=== PATIENT | female | born 1980 | race African-American/Black ===

== ENCOUNTER 2022-04-02 21:56 | Inpatient (IN) | payer MEDICAID ==
[~2022-04-02] VITALS: Ht 172.7 cm; Wt 78.3 kg
--- NOTE | 2022-04-02 22:05 | NUR ---
MD Bocanegra at bedside examining pt.
[2022-04-02 22:09] VITALS: BP_SYST 144
--- NOTE | 2022-04-02 22:10 | NUR ---
41 y/o F, BIB ALS from home due to ALOC. Boyfriend reports he noted her drowsy and slouching over before being assisted to floor, Bf then called 911. On scene BS was elevated and pt remained altered and only arousable to pain. GCS of 2, 4, 4 upon ED arrival. Pt breathing on RA. Unable to obtain history from pt due to condition. Accu check obtaibed with reading of "high" Pt connected to CM at this time. MD Bocanegra at bedside.
[2022-04-02] MEDS ORDERED: NACL 0.9% 2,000 ML IV ONE (22:30)
[2022-04-02] MEDS ORDERED: cefTRIAXone 1 GM IVPB PREMIX 50 ML IV ONE (22:45)
[2022-04-02] MEDS ORDERED: NS 500 ML IV ONE (22:45)
[2022-04-02 23:16] LABS: HEMOGLOBIN 12.8 g/dL (12.0-16.0); MONOCYTES # (AUTO) 0.6 K/uL (0.0-1.0); MONOCYTES % (AUTO) 4.4 % (1.7-9.3); WHITE BLOOD COUNT (AUTO) 12.6 K/uL (4.8-10.8)
[2022-04-02 23:20] LABS: BASOPHILS # (AUTO) 0.1 K/uL (0.0-0.2); BASOPHILS % (AUTO) 0.6 % (0.0-2.0); EOSINOPHILS % (AUTO) 0.1 % (0.0-4.0); HEMATOCRIT 40.1 % (36-48); LYMPHOCYTES # (AUTO) 0.9 K/uL (1.0-5.5); LYMPHOCYTES % (AUTO) 7.5 % (20.5-51.5); MEAN CORPUSCULAR HEMOGLOBIN 29 pg (27-31); MEAN CORPUSCULAR HGB CONC 32 % (32-36); MEAN CORPUSCULAR VOLUME 91 fL (79.0-98.0); NEUTROPHILS % (AUTO) 87.4 % (40.0-70.0); PLATELET COUNT (AUTO) 335 K/uL (130-430); RED CELL DISTRIBUTION WIDTH 15.9 % (9.0-15.0)
[2022-04-03] VITALS (17 sets, daily range): BP systolic 129–153
--- NOTE | 2022-04-03 | NUR ---
# 18 gauge angiocath placed to L FOREARM. Use of asceptic technique. Opsite placed over site. Blood return noted. Blood for lab drawn from site. Flushed with 10 cc of normal saline. No evidence of infiltration noted. Patient tolerated well.
[2022-04-03 00:59] LABS: ANION GAP 10 (5-15); CALCIUM 10.4 mg/dL (8.4-11.0); CHLORIDE 82 mmol/L (98-107); CREATININE 1.87 mg/dL (0.55-1.30); GFR AFRICAN AMERICAN 38 mL/min (>90); UREA NITROGEN, BLOOD 32 mg/dL (8-21)
--- NOTE | 2022-04-03 00:59 | NUR ---
Critical Lab values reported to MD Bocanegra with new orders.
[2022-04-03 01:00] LABS: ALANINE AMINOTRANSFERASE 22 U/L (12-78); ALBUMIN 4.2 g/dL (3.4-4.8); ASPARTATE AMINOTRANSFERASE 17 U/L (10-37); TOTAL BILIRUBIN 0.5 mg/dL (0.0-1.0)
[2022-04-03] MEDS ORDERED: INSULIN REGULAR, HUMAN 10 UNITS/0.1 ML, 3 ML VIAL IVP ONE (01:00)
[2022-04-03 01:01] LABS: LIPASE 268 U/L (73-393)
[2022-04-03 01:37] LABS: BILIRUBIN,URINE NEGATIVE (NEGATIVE); BLOOD, URINE 3+ (NEGATIVE); CLARITY/URINE CLEAR (CLEAR); GLUCOSE,URINE 3+ (NEGATIVE); KETONES,URINE TRACE (NEGATIVE); LEUKOCYTE ESTERASE ,URINE 1+ (NEGATIVE); NITRITE, URINE NEGATIVE (NEGATIVE); PROTEIN URINE TRACE (NEGATIVE); UROBILINOGEN,URINE 0.2 (0.2-1.0)
[2022-04-03 01:42] LABS: COLOR,URINE YELLOW (YELLOW)
[2022-04-03 01:53] LABS: BARBITURATE, URINE NEGATIVE (NEG <=200); BENZODIAZEPINE, URINE NEGATIVE (NEG <=150); CANNABINOID, URINE NEGATIVE (NEG <=50); COCAINE, URINE POSITIVE (NEG <=150); METHAMPHETAMINES SCREEN,URINE NEGATIVE (NEG <=500); OPIATE, URINE NEGATIVE (NEG <=100); PHENCYCLIDINE SCREEN,URINE NEGATIVE (NEG <=25); UR TRICYCLIC ANTIDEPRESSANTS NEGATIVE (NEG <=300); URINE AMPHETAMINE NEGATIVE (NEG <=500); URINE METHADONE NEGATIVE (NEG <=200); URINE OXYCODONE SCREEN NEGATIVE (NEG <=100); URINE PROPOXYPHENE SCREEN NEGATIVE (NEG <=300)
[2022-04-03] MEDS ORDERED: CALCIUM GLUCONATE 1 GM/10 ML VIAL IVP ONE (02:00)
[2022-04-03] MEDS ORDERED: levETIRAcetam 1,000 MG in NS 90 ML IV ONE (02:15)
[2022-04-03 02:28] LABS: BACTERIA,URINE FEW /HPF (None Seen); MUCUS,URINE 2+ /LPF (None Seen); RBC,URINE 20-50 /HPF (0-3); WBC,URINE 80-100 /HPF (0-3)
[2022-04-03] MEDS ORDERED: INSULIN REGULAR, HUMAN 100 UNITS in NS 99 ML IV PRN ×2 (02:30)
[2022-04-03] MEDS ORDERED: DEXTROSE 50% JECT 50 ML DISP.SYRIN IVP PRN (02:30)
[2022-04-03 02:41] LABS: GLUCOSE 1378 mg/dL (70-99)
[2022-04-03 02:51] LABS: ALCOHOL, BLOOD < 3 mg/dL (<10)
[2022-04-03 02:53] LABS: ACETONE, SERUM SMALL (NEGATIVE)
--- NOTE | 2022-04-03 03:00 | NUR ---
Pt started on insulin drip as ordered for elevated BS. Titration to follow. Hourly accuchecks to be rendered.
[2022-04-03] MEDS: PIPERACILLIN/TAZO 3.375 GM in NS 50 ML IV SCH ×4 (03:30→20:53)
[2022-04-03] MEDS: NACL 0.9% 1,000 ML IV SCH ×5 (04:40→23:33)
[2022-04-03] MEDS ORDERED: PIPERACILLIN/TAZOBACTAM 3.375 GM/VIAL (ZOSYN) IV ONE (04:48)
--- NOTE | 2022-04-03 05:52 | NUR ---
Admit bed requested Patient will be admitted to care of . Admitted to ICU unit. Diagnosis : SEPSIS Inpatient (Yes or No) Y Orientation concerns or request close to nursing station (Yes or No) Covid Status: NEG From Home (Yes or if No enter name of facility) Y
--- NOTE | 2022-04-03 07:07 | NUR ---
Report endorsed to ERIBERTO Lunsford for continuity of care. Questions/Concerns answered. Pt in stable condition.
--- NOTE | 2022-04-03 07:10 | NUR ---
REPORT RECEIVED, CARE ASSUMED, PT ASSESSED.
--- NOTE | 2022-04-03 07:30 | NUR ---
PT SLEEPING, AROUSES BRIEFLY TO TACTILE STIM WITH VERBAL, OPENS EYES THEN BACK TO SLEEP. RESP EASY, MM PINK AND DRY, NO APPARENT DISTRESS. FSBS 401. INSULIN GTT CONT AT 5 U/HR.
--- NOTE | 2022-04-03 08:05 | NUR ---
Patient will be admitted to care of DR ALEXANDER. Admitted to ICU unit. Will go to room 6. Belongings list completed. Complete and up to date summary report printed. SBAR report to be given at bedside with opportunity for questions.
[2022-04-03 08:13] LABS: BASOPHILS # (AUTO) 0.1 K/uL (0.0-0.2); BASOPHILS % (AUTO) 0.5 % (0.0-2.0); EOSINOPHILS % (AUTO) 0.2 % (0.0-4.0); HEMATOCRIT 37.8 % (36-48); HEMOGLOBIN 12.6 g/dL (12.0-16.0); LYMPHOCYTES # (AUTO) 1.4 K/uL (1.0-5.5); LYMPHOCYTES % (AUTO) 9.9 % (20.5-51.5); MEAN CORPUSCULAR HEMOGLOBIN 28 pg (27-31); MEAN CORPUSCULAR HGB CONC 33 % (32-36); MEAN CORPUSCULAR VOLUME 85 fL (79.0-98.0); MONOCYTES % (AUTO) 7.1 % (1.7-9.3); NEUTROPHILS # (AUTO) 11.9 K/uL (1.8-7.7); NEUTROPHILS % (AUTO) 82.3 % (40.0-70.0); PLATELET COUNT (AUTO) 221 K/uL (130-430); RED BLOOD CELL COUNT(AUTO) 4.46 MIL/uL (4.2-6.2); RED CELL DISTRIBUTION WIDTH 15.9 % (9.0-15.0); WHITE BLOOD COUNT (AUTO) 14.5 K/uL (4.8-10.8)
--- NOTE | 2022-04-03 08:19 | NUR ---
received report from ER Nurse using SBAR method, patient is on insulin drip @ 5 units/hr. Patient temperature 98.2, Heart rate 114, respiratory rate 14, oxygen saturation 99 and blood pressure 153/44. Dr. mcginnis is at the bedside assessing the patient.
[2022-04-03 08:25] LABS: ALBUMIN 3.6 g/dL (3.4-4.8); CREATININE 1.3 mg/dL (0.55-1.30); TOTAL BILIRUBIN 0.3 mg/dL (0.0-1.0)
[2022-04-03] MEDS ORDERED: NACL 0.9% 1,000 ML IV ONE (08:45)
[2022-04-03 11:13] LABS: CHOLESTEROL 204 mg/dL (<200); LDL CHOLESTEROL 121 mg/dL (<100); TRIGLYCERIDES 207 mg/dL (30-150)
[2022-04-03 11:23] LABS: HDL CHOLESTEROL 50 mg/dL (>55)
[2022-04-03 11:24] LABS: ALCOHOL, BLOOD < 3 mg/dL (<10)
[2022-04-03 11:25] LABS: ANION GAP 7 (5-15); CHLORIDE 108 mmol/L (98-107)
[2022-04-03 11:26] LABS: ASPARTATE AMINOTRANSFERASE 17 U/L (10-37); GFR AFRICAN AMERICAN 58 mL/min (>90); GLUCOSE 405 mg/dL (70-99); TOTAL BILIRUBIN 0.3 mg/dL (0.0-1.0); UREA NITROGEN, BLOOD 25 mg/dL (8-21)
[2022-04-03 11:27] LABS: ALANINE AMINOTRANSFERASE 19 U/L (12-78); ALBUMIN 3.6 g/dL (3.4-4.8)
[2022-04-03 12:17] LABS: PHOSPHORUS 4.4 mg/dL (2.7-4.5)
[2022-04-03] MEDS ORDERED: INSULIN GLARGINE 100 UNITS/ML, 10 ML VIAL SUBCUT ONE (12:30)
[2022-04-03 12:52] LABS: THYROID STIMULATING HORMONE 0.16 uIu/mL (0.36-3.74)
--- NOTE | 2022-04-03 13:20 | NUR ---
Ellington catheter is inserted using aseptic technique @ 1013, 2 liters of yellow urine noted at drainage bag. @1320 patient keep on complaining about the Ellington catheter and wants it to be remove, and keep getting out of bed.D/c Ellington catheter @ 1320.
[2022-04-03] MEDS: INSULIN LISPRO SLIDING SCALE 100 UNITS/ML, 3 ML VIAL (humaLOG) SUBCUT PRN ×3 (13:41→23:33)
--- NOTE | 2022-04-03 20:19 | NUR ---
Patient Resting is Responsive to light touch , on room air 02 SAT 96 % encourage assist for position change & tolerated no SOB noted skin dry warm SAFETY MEASURES implemented continue to monitor / .
[2022-04-03] MEDS: INSULIN GLARGINE 100 UNITS/ML, 10 ML VIAL SUBCUT SCH (20:56)
--- NOTE | 2022-04-03 21:37 | NUR ---
Hourly Rounding patient resting Respirations Remain Regular also unlabored FALL MEASURES implemented position change tolerated / .
--- NOTE | 2022-04-03 22:52 | NUR ---
Assist patient with use of bed villasenor for urine , tolerated .
--- NOTE | 2022-04-03 22:53 | NUR ---
Nasal swab Rapid for COVID collected and sent to Lab / .
[2022-04-04] VITALS (19 sets, daily range): BP systolic 95–144
[2022-04-04] MEDS: NACL 0.9% 1,000 ML IV SCH ×3 (06:00→18:39)
[2022-04-04] MEDS: PIPERACILLIN/TAZO 3.375 GM in NS 50 ML IV SCH ×3 (06:00→21:13)
[2022-04-04] MEDS: INSULIN LISPRO SLIDING SCALE 100 UNITS/ML, 3 ML VIAL (humaLOG) SUBCUT PRN ×3 (06:02→17:35)
--- NOTE | 2022-04-04 06:12 | NUR ---
assist patient with use of bed villasenor for urine , 450 ML out tolerated , patient is asking for more snacks po / .
[2022-04-04 07:16] LABS: BASOPHILS # (AUTO) 0.1 K/uL (0.0-0.2); BASOPHILS % (AUTO) 0.6 % (0.0-2.0); EOSINOPHILS # (AUTO) 0.2 K/uL (0.0-0.4); EOSINOPHILS % (AUTO) 1.8 % (0.0-4.0); HEMOGLOBIN 11.1 g/dL (12.0-16.0); LYMPHOCYTES # (AUTO) 1.8 K/uL (1.0-5.5); LYMPHOCYTES % (AUTO) 19.5 % (20.5-51.5); MEAN CORPUSCULAR HEMOGLOBIN 29 pg (27-31); MEAN CORPUSCULAR HGB CONC 34 % (32-36); MEAN CORPUSCULAR VOLUME 85 fL (79.0-98.0); MONOCYTES # (AUTO) 0.5 K/uL (0.0-1.0); MONOCYTES % (AUTO) 5.2 % (1.7-9.3); NEUTROPHILS # (AUTO) 6.9 K/uL (1.8-7.7); NEUTROPHILS % (AUTO) 72.9 % (40.0-70.0); PLATELET COUNT (AUTO) 300 K/uL (130-430); RED BLOOD CELL COUNT(AUTO) 3.88 MIL/uL (4.2-6.2); WHITE BLOOD COUNT (AUTO) 9.5 K/uL (4.8-10.8)
[2022-04-04 07:24] LABS: CALCIUM 9.2 mg/dL (8.4-11.0); CREATININE 1.26 mg/dL (0.55-1.30)
--- NOTE | 2022-04-04 07:30 | NUR ---
received report from endorsing research scientist RN for continuity of care, patient sitting on bed with an IVF of 0.9 NS @ 200 ml/hr. vital signs temperature 97.4, heart rate 85, respiratory rate 24, oxygen saturation 95, and blood pressure 142/49. Dr. Archer is at the bedside assessing the patient, breakfast tray given to the patient.will continue to monitor.
[2022-04-04 07:38] LABS: ALBUMIN 2.6 g/dL (3.4-4.8); THYROID STIMULATING HORMONE 0.09 uIu/mL (0.36-3.74); TOTAL BILIRUBIN 0.4 mg/dL (0.0-1.0)
[2022-04-04] MEDS: INSULIN GLARGINE 100 UNITS/ML, 10 ML VIAL SUBCUT SCH (09:07)
--- NOTE | 2022-04-04 12:21 | NUR ---
patient voided into bedpan at this time, assisted with pericare. lunch tray given @ 1220.
[2022-04-04] MEDS ORDERED: INSULIN Lispro 100 UNITS/ML, 3 ML VIAL (humaLOG) SUBCUT SCH (17:00)
--- NOTE | 2022-04-04 17:38 | NUR ---
ADVISED DR DIANASAYED BLOOD GLUCOSE IS 455. ERIBERTO MAYEN IS COVERING IT WITH 5 UNITS HUMALOG AND SLIDING SCALE [address] DIANASAYED STATED 17 UNITS IS ENOUGH COVERAGE SINCE SHE WILL GIVEN 20 UNITS LANTUS AT 2100. DR DIANASAYANTONY STATED IF BLOOD GLUCOSE IS ABOVE 300 WHEN BEING CHECKED TO GIVE THE LANTUS, TO CALL HIM. IF IT IS LESS THAN 300 TO USE THE SLIDING SCALE.
--- NOTE | 2022-04-04 20:20 | NUR ---
Dr Knutson-Sayed at bedside speaking to Salas Wylie (patient's friend) regarding need for patient to remain in hospital and the need to educate patient to stay and not to sign AMA; Salas agreed to speak to patient. Patient continues to sleep and still appears weak; not safe for her to ambulate without supervision or assistance. Dr Knutson-Sayed reported this nurse that changes in insulin coverage Lantus from 20 to 25 will occur and to call him if BS check at 2100 is > 300.
--- NOTE | 2022-04-04 20:40 | NUR ---
BS [address] Knutson-Sayed suggested not to call in BS is <300, call was made to report that BS is lower than expected, but Dr Knutson-Sayed stated it is ok to cover patient with new order of Lantus 25 units.
[2022-04-04] MEDS ORDERED: INSULIN LISPRO SLIDING SCALE 100 UNITS/ML, 3 ML VIAL (humaLOG) SUBCUT PRN (21:00)
[2022-04-04] MEDS ORDERED: INSULIN GLARGINE 100 UNITS/ML, 10 ML VIAL SUBCUT SCH (21:00)
--- NOTE | 2022-04-04 21:50 | NUR ---
Transferred to [facility] via wheelchair. Report given to nurse. Patient tolerated well.
--- NOTE | 2022-04-04 22:51 | NUR ---
awake alert Hx of DM snacks given po unsteady gait Transfer from ICU procedures explained on RA 02 SAT 95 % BED ALARM IS ON / .
[2022-04-05 00:23] VITALS: BP_SYST 136
--- NOTE | 2022-04-05 01:44 | NUR ---
Hourly Rounding patient Resting is verbally Responsive bed alarm is on FALL PRECAUTIONS noted Respirations regular unlabored .
[2022-04-05] MEDS: NACL 0.9% 1,000 ML IV SCH (05:51)
[2022-04-05] MEDS: PIPERACILLIN/TAZO 3.375 GM in NS 50 ML IV SCH (05:52)
--- NOTE | 2022-04-05 06:15 | NUR ---
Patient Refusing Telemetry rips off leads & box .
--- NOTE | 2022-04-05 06:16 | NUR ---
Patient Refusing IVF .
--- NOTE | 2022-04-05 06:17 | NUR ---
Patient wants to go AMA Home .
[2022-04-05] MEDS ORDERED: INSULIN Lispro 100 UNITS/ML, 3 ML VIAL (humaLOG) SUBCUT SCH (07:00)
--- NOTE | 2022-04-05 09:45 | NUR ---
PT TRYING TO LEAVE ENTIRE MORNING AMA. DR ALEXANDER CALLED AND STATED HE WOULD BE IN BEFORE NOON. PT INSISTED ON LEAVING AMA AND PAPER SIGNED BY PT STATING HER DESIRE TO LEAVE. ELVA GIVEN TO PT BY BEBETO. PT THEN LEFT UNIT WITH WALKER .
--- NOTE | 2022-04-05 09:57 | NUR ---
Senior Case Manager This INTELLIGENT SYSTEMS ENGINEER was responded to a referral for another pt. when this pt. was in the hallway wanting to leave AMA. INTELLIGENT SYSTEMS ENGINEER was able to speak to pt. in her room. Pt. wore her purse strap like a cross body and had her hospital gown tied around her wait and wore a yellow [employer] t-shirt, no shoes. Pt. looked upkept and spoke in a low tone whith slow speech. INTELLIGENT SYSTEMS ENGINEER asked pt. to wait to speak to her Dr. before she left AMA. pt. stated she is leaving the hospital and does not care if she has a ride. Pt. would not change her mind and began walking in circles in the [address] way towards ICU. Security was called. INTELLIGENT SYSTEMS ENGINEER will remain available as needed.
== END 2022-04-05 09:00 | disposition left against medical advice (07) | DRG 720 ==
LOC: SED 21:56 → SIC 04-03 03:07 → STU 04-04 21:47
PROVIDERS: ADMIT Internal Medicine; ATTEND Internal Medicine
PROC: 4A00X4Z Measurement of Central Nervous Electrical Activity, External Approach (ICD-10-PCS; principal; 2022-04-03)
PROC: 0T9B70Z Drainage of Bladder with Drainage Device, Via Natural or Artificial Opening (ICD-10-PCS; 2022-04-03)
DX: A41.9 Sepsis, unspecified organism (principal); N17.0 Acute kidney failure with tubular necrosis; E11.00 Type 2 diabetes mellitus with hyperosmolarity without nonketotic hyperglycemic-hyperosmolar coma (NKHHC); G93.41 Metabolic encephalopathy; G40.409 Other generalized epilepsy and epileptic syndromes, not intractable, without status epilepticus; G93.89 Other specified disorders of brain; E87.5 Hyperkalemia; E87.1 Hypo-osmolality and hyponatremia; Z20.822 Contact with and (suspected) exposure to COVID-19; E86.0 Dehydration; E11.65 Type 2 diabetes mellitus with hyperglycemia; I12.9 Hypertensive chronic kidney disease with stage 1 through stage 4 chronic kidney disease, or unspecified chronic kidney disease; E11.22 Type 2 diabetes mellitus with diabetic chronic kidney disease; N18.9 Chronic kidney disease, unspecified; Z79.4 Long term (current) use of insulin; Z91.14 Patient's other noncompliance with medication regimen; N39.0 Urinary tract infection, site not specified
CPT/HCPCS: 36415; 36600; 70450-TC; 71045; 76376; 80053; 80061; 80307; 81000; 82009; 82803-TC; 82962; 83036; 83605; 83690; 83735; 83880; 84100; 84436; 84443; 84484; 85025; 87040; 87086; 93005; 93306; 95816; 96361; 96365; 99291; G0378; G0482; J0610; J0696; J1815; J1953; J2543; J7030

== ENCOUNTER 2022-08-17 08:34 | Inpatient (IN) | payer MEDICAID ==
[~2022-08-17] VITALS: Ht 175.3 cm; Wt 69.9 kg
[2022-08-17 08:57] VITALS: BP_SYST 147
[2022-08-17 09:44] LABS: BASOPHILS % (AUTO) 0.6 % (0.0-2.0); EOSINOPHILS % (AUTO) 0.6 % (0.0-4.0); HEMATOCRIT 38.6 % (36-48); HEMOGLOBIN 12.6 g/dL (12.0-16.0); LYMPHOCYTES # (AUTO) 1.4 K/uL (1.0-5.5); MEAN CORPUSCULAR HEMOGLOBIN 29 pg (27-31); MEAN CORPUSCULAR HGB CONC 33 % (32-36); MEAN CORPUSCULAR VOLUME 87 fL (79.0-98.0); MONOCYTES # (AUTO) 0.4 K/uL (0.0-1.0); MONOCYTES % (AUTO) 5.9 % (1.7-9.3); NEUTROPHILS # (AUTO) 5.7 K/uL (1.8-7.7); NEUTROPHILS % (AUTO) 74.9 % (40.0-70.0); PLATELET COUNT (AUTO) 270 K/uL (130-430); RED BLOOD CELL COUNT(AUTO) 4.42 MIL/uL (4.2-6.2); WHITE BLOOD COUNT (AUTO) 7.6 K/uL (4.8-10.8)
[2022-08-17 10:10] LABS: ALANINE AMINOTRANSFERASE 11 U/L (12-78); ALBUMIN 3.5 g/dL (3.4-4.8); AMYLASE 40 U/L (0-100); ANION GAP 8 (5-15); ASPARTATE AMINOTRANSFERASE 8 U/L (10-37); CALCIUM 9.6 mg/dL (8.4-11.0); CHLORIDE 91 mmol/L (98-107); CREATININE 1.55 mg/dL (0.55-1.30); GFR AFRICAN AMERICAN 48 mL/min (>90); LIPASE 228 U/L (73-393); TOTAL BILIRUBIN 0.4 mg/dL (0.0-1.0); UREA NITROGEN, BLOOD 28 mg/dL (8-21)
[2022-08-17 10:12] LABS: GLUCOSE 863 mg/dL (70-99)
[2022-08-17] MEDS ORDERED: INSULIN REGULAR, HUMAN 10 UNITS/0.1 ML, 3 ML VIAL IVP ONE ×2 (10:15→13:30)
[2022-08-17] MEDS ORDERED: NACL 0.9% 3,000 ML IV ONE (10:15)
[2022-08-17 11:00] LABS: BILIRUBIN,URINE NEGATIVE (NEGATIVE); BLOOD, URINE NEGATIVE (NEGATIVE); CLARITY/URINE CLEAR (CLEAR); COLOR,URINE YELLOW (YELLOW); GLUCOSE,URINE 3+ (NEGATIVE); KETONES,URINE NEGATIVE (NEGATIVE); LEUKOCYTE ESTERASE ,URINE NEGATIVE (NEGATIVE); NITRITE, URINE NEGATIVE (NEGATIVE); PH,URINE 6.5 (5.0-8.0); PROTEIN URINE NEGATIVE (NEGATIVE); UROBILINOGEN,URINE 0.2 (0.2-1.0)
[2022-08-17 11:07] LABS: BACTERIA,URINE None Seen /HPF (None Seen); RBC,URINE NONE SEEN /HPF (0-3); WBC,URINE 0-3 /HPF (0-3); YEAST,URINE Few /HPF (None Seen)
[2022-08-17 11:56] LABS: ACETONE, SERUM POSITIVE (NEGATIVE)
[2022-08-17] MEDS ORDERED: LORazepam 2 MG/ML VIAL IVP ONE (12:30)
[2022-08-17] MEDS ORDERED: AMLO5TAB92 PO (13:46)
[2022-08-17] MEDS ORDERED: LISI20TA30 PO (13:46)
[2022-08-17] MEDS ORDERED: INSU100I40 SUBCUT (13:46)
[2022-08-17] MEDS ORDERED: LANTUS (13:46)
[2022-08-17] MEDS ORDERED: AMLO10TA88 PO (13:46)
[2022-08-17] MEDS ORDERED: BUPR-48 PO (13:46)
[2022-08-17] MEDS ORDERED: TRAZ-250 PO (13:46)
[2022-08-17 15:47] VITALS: BP_SYST 150
[2022-08-17 15:48] VITALS: BP_SYST 150
[2022-08-17] MEDS: NACL 0.9% 1,000 ML IV SCH (16:10)
[2022-08-17] MEDS: INSULIN REGULAR, HUMAN 100 UNITS/ML, 3 ML VIAL (humuLIN R) SUBCUT PRN ×2 (16:25→20:58)
[2022-08-17 20:00] VITALS: BP_SYST 139
[2022-08-17] MEDS: INSULIN GLARGINE 100 UNITS/ML, 10 ML VIAL SUBCUT SCH (21:02)
[2022-08-17 22:11] VITALS: BP_SYST 139
[2022-08-17] MEDS ORDERED: LORazepam 2 MG/ML VIAL IVP PRN (23:00)
[2022-08-17] MEDS ORDERED: NALOXONE HCL 0.4 MG/ML AMP (NARCAN) IVP PRN ×2 (23:00)
[2022-08-17] MEDS ORDERED: HYDROcodone/ACETAMIN 10-325 MG TAB PO PRN (23:00)
[2022-08-17] MEDS ORDERED: ACETAMINOPHEN 325 MG TABLET PO PRN (23:00)
[2022-08-17] MEDS ORDERED: HYDROcodone/ACETAMIN 5-325 MG TAB (NORCO/ VICODIN) PO PRN (23:00)
[2022-08-17] MEDS ORDERED: ONDANSETRON HCL 4 MG/2 ML VIAL IVP PRN (23:00)
[2022-08-18] MEDS: NACL 0.9% 1,000 ML IV SCH ×2 (01:06→09:21)
[2022-08-18 02:28] VITALS: BP_SYST 140
[2022-08-18 06:35] LABS: BASOPHILS # (AUTO) 0.1 K/uL (0.0-0.2); BASOPHILS % (AUTO) 0.7 % (0.0-2.0); EOSINOPHILS # (AUTO) 0.1 K/uL (0.0-0.4); EOSINOPHILS % (AUTO) 1.1 % (0.0-4.0); HEMATOCRIT 35.8 % (36-48); HEMOGLOBIN 12.1 g/dL (12.0-16.0); LYMPHOCYTES # (AUTO) 3.9 K/uL (1.0-5.5); MEAN CORPUSCULAR HEMOGLOBIN 29 pg (27-31); MEAN CORPUSCULAR HGB CONC 34 % (32-36); MEAN CORPUSCULAR VOLUME 85 fL (79.0-98.0); MONOCYTES # (AUTO) 0.8 K/uL (0.0-1.0); MONOCYTES % (AUTO) 7.4 % (1.7-9.3); NEUTROPHILS % (AUTO) 54.8 % (40.0-70.0); PLATELET COUNT (AUTO) 106 K/uL (130-430); RED BLOOD CELL COUNT(AUTO) 4.24 MIL/uL (4.2-6.2); RED CELL DISTRIBUTION WIDTH 15.3 % (9.0-15.0)
[2022-08-18 06:44] LABS: ALBUMIN 2.9 g/dL (3.4-4.8); CALCIUM 9.1 mg/dL (8.4-11.0); CREATININE 1.04 mg/dL (0.55-1.30); PHOSPHORUS 4.6 mg/dL (2.7-4.5); THYROID STIMULATING HORMONE 0.12 uIu/mL (0.34-4.82); TOTAL BILIRUBIN 0.2 mg/dL (0.0-1.0)
[2022-08-18] MEDS: INSULIN REGULAR, HUMAN 100 UNITS/ML, 3 ML VIAL (humuLIN R) SUBCUT PRN ×2 (06:55→12:10)
[2022-08-18 07:40] VITALS: BP_SYST 155
[2022-08-18] MEDS: INSULIN Lispro 100 UNITS/ML, 3 ML VIAL (humaLOG) SUBCUT SCH ×2 (08:13→12:01)
[2022-08-18] MEDS: INSULIN GLARGINE 100 UNITS/ML, 10 ML VIAL SUBCUT SCH (08:15)
[2022-08-18] MEDS ORDERED: buPROPion HCL 150 MG XL TAB PO SCH (09:00)
[2022-08-18] MEDS ORDERED: NICOTINE 7 MG/24 HR PATCH.TD24 TD SCH (09:00)
[2022-08-18] MEDS ORDERED: amLODIPine BESYLATE 10 MG TABLET PO SCH (09:00)
[2022-08-18 12:00] VITALS: BP_SYST 145
[2022-08-18] MEDS ORDERED: INSU100I70 SUBCUT ×2 (13:15)
[2022-08-18] MEDS ORDERED: SSNOVOLOG SUBCUT (13:46)
[2022-08-18 13:49] VITALS: BP_SYST 145
[2022-08-18] MEDS ORDERED: traZODone HCL 50 MG TABLET (DESYREL) PO SCH (21:00)
[2022-08-18] MEDS ORDERED: lisinopriL 20 MG TABLET PO SCH (21:00)
== END 2022-08-18 14:45 | disposition home or self-care (01) | DRG 420 ==
LOC: SED 08:34 → STU 13:25
PROVIDERS: ADMIT Preventive Medicine Preventive Medicine/Occupational Environmental Medicine; ATTEND Preventive Medicine Preventive Medicine/Occupational Environmental Medicine
DX: E10.65 Type 1 diabetes mellitus with hyperglycemia (principal); N17.0 Acute kidney failure with tubular necrosis; E10.22 Type 1 diabetes mellitus with diabetic chronic kidney disease; E87.1 Hypo-osmolality and hyponatremia; E87.5 Hyperkalemia; N18.9 Chronic kidney disease, unspecified; Z79.4 Long term (current) use of insulin
CPT/HCPCS: 36415; 80053; 81000; 82009; 82150; 82962; 83037; 83605; 83690; 83735; 84100; 84436; 84443; 85025; 87086; 96361; 96374; 96376; 99285; G0378; J1815

== ENCOUNTER 2022-08-19 10:20 | Emergency (ER) | payer MEDICAID ==
[~2022-08-19] VITALS: Ht 175.3 cm; Wt 63.5 kg
[~2022-08-19 10:20] MED LIST: AMLO10TA88 PO; BUPR-48 PO; INSU100I70 SUBCUT; LISI20TA30 PO; SSNOVOLOG SUBCUT; TRAZ-250 PO
[2022-08-19 10:28] VITALS: BP_SYST 152
[2022-08-19] MEDS ORDERED: HALOPERIDOL LACTATE 5 MG/ML VIAL IM ONE (10:30)
[2022-08-19] MEDS ORDERED: LORazepam 1 MG TABLET PO ONE (11:00)
[2022-08-19 11:07] LABS: BASOPHILS % (AUTO) 0.5 % (0.0-2.0); EOSINOPHILS % (AUTO) 0.4 % (0.0-4.0); HEMATOCRIT 35.5 % (36-48); HEMOGLOBIN 11.6 g/dL (12.0-16.0); LYMPHOCYTES # (AUTO) 1.2 K/uL (1.0-5.5); LYMPHOCYTES % (AUTO) 17.2 % (20.5-51.5); MEAN CORPUSCULAR HEMOGLOBIN 29 pg (27-31); MEAN CORPUSCULAR HGB CONC 33 % (32-36); MEAN CORPUSCULAR VOLUME 88 fL (79.0-98.0); MONOCYTES # (AUTO) 0.4 K/uL (0.0-1.0); MONOCYTES % (AUTO) 4.9 % (1.7-9.3); NEUTROPHILS # (AUTO) 5.6 K/uL (1.8-7.7); PLATELET COUNT (AUTO) 259 K/uL (130-430); RED BLOOD CELL COUNT(AUTO) 4.04 MIL/uL (4.2-6.2); RED CELL DISTRIBUTION WIDTH 15.3 % (9.0-15.0); WHITE BLOOD COUNT (AUTO) 7.3 K/uL (4.8-10.8)
[2022-08-19 11:08] LABS: ANION GAP 7 (5-15); CALCIUM 8.6 mg/dL (8.4-11.0); CHLORIDE 95 mmol/L (98-107); CREATININE 1.51 mg/dL (0.55-1.30); GFR AFRICAN AMERICAN 49 mL/min (>90); UREA NITROGEN, BLOOD 19 mg/dL (8-21)
[2022-08-19 11:19] LABS: ALANINE AMINOTRANSFERASE 21 U/L (12-78); AMYLASE 43 U/L (0-100); ASPARTATE AMINOTRANSFERASE 8 U/L (10-37); LIPASE 218 U/L (73-393); TOTAL BILIRUBIN 0.3 mg/dL (0.0-1.0)
[2022-08-19 11:31] LABS: GLUCOSE 815 mg/dL (70-99)
[2022-08-19 11:36] LABS: ACETONE, SERUM NEGATIVE (NEGATIVE)
[2022-08-19] MEDS ORDERED: NACL 0.9% 3,000 ML IV ONE (12:00)
[2022-08-19] MEDS ORDERED: INSULIN REGULAR, HUMAN 10 UNITS/0.1 ML, 3 ML VIAL IVP ONE ×2 (12:00→14:30)
[2022-08-19] MEDS ORDERED: LORazepam 2 MG/ML VIAL IVP ONE (15:00)
[2022-08-19 16:20] VITALS: BP_SYST 148
== END 2022-08-19 16:21 | disposition home or self-care (01) ==
LOC: SED 10:20
DX: E11.65 Type 2 diabetes mellitus with hyperglycemia (principal); Z79.899 Other long term (current) drug therapy; Z20.822 Contact with and (suspected) exposure to COVID-19
CPT/HCPCS: 99284; 96374; 96361; 96375; 87426; 80053; 82009; 82150; 83690; 85025; 36415; 96372; 83605; 82962; J1630; J2060; J7030; J1815

== ENCOUNTER 2022-08-20 20:27 | Inpatient (IN) | payer MEDICAID ==
[~2022-08-20] VITALS: Ht 175.3 cm; Wt 66.2 kg
[2022-08-20 20:35] VITALS: BP_SYST 150
[2022-08-20] MEDS ORDERED: NS 1000 ML IV.SOLN IV ONE (21:00)
[2022-08-20 21:10] LABS: BASOPHILS % (AUTO) 0.4 % (0.0-2.0); EOSINOPHILS % (AUTO) 0.6 % (0.0-4.0); MEAN CORPUSCULAR HEMOGLOBIN 29 pg (27-31); MEAN CORPUSCULAR HGB CONC 34 % (32-36); MEAN CORPUSCULAR VOLUME 84 fL (79.0-98.0); MONOCYTES # (AUTO) 0.5 K/uL (0.0-1.0); MONOCYTES % (AUTO) 5.9 % (1.7-9.3); NEUTROPHILS # (AUTO) 5.5 K/uL (1.8-7.7); NEUTROPHILS % (AUTO) 68.1 % (40.0-70.0); PLATELET COUNT (AUTO) 300 K/uL (130-430); RED BLOOD CELL COUNT(AUTO) 4.15 MIL/uL (4.2-6.2); RED CELL DISTRIBUTION WIDTH 15.1 % (9.0-15.0); WHITE BLOOD COUNT (AUTO) 8.1 K/uL (4.8-10.8)
[2022-08-20 21:29] LABS: ALBUMIN 3.3 g/dL (3.4-4.8); CALCIUM 9.2 mg/dL (8.4-11.0); CREATININE 1.43 mg/dL (0.55-1.30); TOTAL BILIRUBIN 0.3 mg/dL (0.0-1.0)
[2022-08-20] MEDS ORDERED: KETOROLAC TROMETHAMINE 30 MG VIAL IVP ONE (21:30)
[2022-08-20] MEDS ORDERED: INSULIN REGULAR, HUMAN 10 UNITS/0.1 ML, 3 ML VIAL IVP ONE (22:30)
[2022-08-20] MEDS ORDERED: DIPHENHYDRAMINE INJ 50 MG/ML VIAL IVP ONE ×2 (23:30)
[2022-08-21 02:05] VITALS: BP_SYST 140
[2022-08-21 03:15] VITALS: BP_SYST 140
[2022-08-21] MEDS: NACL 0.9% 1,000 ML IV SCH ×3 (05:25→19:14)
[2022-08-21] MEDS: INSULIN REGULAR, HUMAN 100 UNITS/ML, 3 ML VIAL (humuLIN R) SUBCUT PRN ×3 (05:32→19:18)
[2022-08-21 07:55] LABS: BASOPHILS % (AUTO) 0.3 % (0.0-2.0); EOSINOPHILS # (AUTO) 0.1 K/uL (0.0-0.4); EOSINOPHILS % (AUTO) 1.2 % (0.0-4.0); HEMATOCRIT 33.8 % (36-48); HEMOGLOBIN 11.5 g/dL (12.0-16.0); LYMPHOCYTES # (AUTO) 2.1 K/uL (1.0-5.5); LYMPHOCYTES % (AUTO) 34.1 % (20.5-51.5); MEAN CORPUSCULAR HEMOGLOBIN 29 pg (27-31); MEAN CORPUSCULAR HGB CONC 34 % (32-36); MEAN CORPUSCULAR VOLUME 85 fL (79.0-98.0); MONOCYTES # (AUTO) 0.5 K/uL (0.0-1.0); MONOCYTES % (AUTO) 7.8 % (1.7-9.3); NEUTROPHILS # (AUTO) 3.5 K/uL (1.8-7.7); NEUTROPHILS % (AUTO) 56.6 % (40.0-70.0); PLATELET COUNT (AUTO) 288 K/uL (130-430); RED BLOOD CELL COUNT(AUTO) 3.99 MIL/uL (4.2-6.2); RED CELL DISTRIBUTION WIDTH 15.1 % (9.0-15.0); WHITE BLOOD COUNT (AUTO) 6.2 K/uL (4.8-10.8)
[2022-08-21 08:00] VITALS: BP_SYST 169
[2022-08-21 08:00] LABS: CALCIUM 8.7 mg/dL (8.4-11.0); CREATININE 1.13 mg/dL (0.55-1.30)
[2022-08-21 08:05] LABS: ALBUMIN 2.8 g/dL (3.4-4.8); TOTAL BILIRUBIN 0.3 mg/dL (0.0-1.0)
[2022-08-21 11:45] VITALS: BP_SYST 152
[2022-08-21] MEDS: LORazepam 1 MG TABLET PO PRN (12:48)
[2022-08-21 17:30] VITALS: BP_SYST 158
[2022-08-21 17:46] LABS: CHOLESTEROL 197 mg/dL (<200); HDL CHOLESTEROL 56 mg/dL (>55); TRIGLYCERIDES 77 mg/dL (30-150)
[2022-08-21 19:45] VITALS: BP_SYST 145
[2022-08-21] MEDS: INSULIN GLARGINE 100 UNITS/ML, 10 ML VIAL SUBCUT SCH (21:09)
[2022-08-22] MEDS: NACL 0.9% 1,000 ML IV SCH ×3 (05:25→16:30)
[2022-08-22] MEDS: INSULIN REGULAR, HUMAN 100 UNITS/ML, 3 ML VIAL (humuLIN R) SUBCUT PRN ×3 (05:30→16:45)
[2022-08-22 05:38] VITALS: BP_SYST 159
[2022-08-22] MEDS: LORazepam 1 MG TABLET PO PRN ×2 (06:56→16:50)
[2022-08-22 08:00] VITALS: BP_SYST 142
[2022-08-22 09:24] LABS: BILIRUBIN,URINE NEGATIVE (NEGATIVE); BLOOD, URINE NEGATIVE (NEGATIVE); CLARITY/URINE CLEAR (CLEAR); COLOR,URINE YELLOW (YELLOW); GLUCOSE,URINE 2+ (NEGATIVE); KETONES,URINE NEGATIVE (NEGATIVE); LEUKOCYTE ESTERASE ,URINE 1+ (NEGATIVE); NITRITE, URINE NEGATIVE (NEGATIVE); PROTEIN URINE NEGATIVE (NEGATIVE); UROBILINOGEN,URINE 0.2 (0.2-1.0)
[2022-08-22] MEDS: INSULIN GLARGINE 100 UNITS/ML, 10 ML VIAL SUBCUT SCH (09:50)
[2022-08-22 10:10] LABS: BACTERIA,URINE FEW /HPF (None Seen); RBC,URINE 0-3 /HPF (0-3)
[2022-08-22] MEDS ORDERED: QUEtiapine FUMARATE 25 MG TABLET PO ONE (11:30)
[2022-08-22 12:10] VITALS: BP_SYST 138
[2022-08-22] MEDS ORDERED: INSULIN REGULAR, HUMAN 100 UNITS/ML, 3 ML VIAL SUBCUT ONE (12:30)
[2022-08-22 16:30] VITALS: BP_SYST 131
[2022-08-22 20:00] VITALS: BP_SYST 130
[2022-08-22] MEDS ORDERED: INSULIN GLARGINE 100 UNITS/ML, 10 ML VIAL SUBCUT SCH (21:00)
[2022-08-22] MEDS: QUEtiapine FUMARATE 25 MG TABLET PO SCH (21:17)
[2022-08-23 00:17] VITALS: BP_SYST 129
[2022-08-23] MEDS: NACL 0.9% 1,000 ML IV SCH ×4 (00:30→23:19)
[2022-08-23] MEDS: INSULIN REGULAR, HUMAN 100 UNITS/ML, 3 ML VIAL (humuLIN R) SUBCUT PRN ×4 (00:42→23:23)
[2022-08-23] MEDS ORDERED: GLUCOSE (DEXTROSE) ORAL GEL -Adults PO PRN (06:30)
[2022-08-23] MEDS ORDERED: DEXTROSE 50% JECT 50 ML DISP.SYRIN IVP PRN (06:30)
[2022-08-23] MEDS ORDERED: D5W 1,000 ML IV PRN (06:30)
[2022-08-23 08:00] VITALS: BP_SYST 146
[2022-08-23] MEDS: QUEtiapine FUMARATE 25 MG TABLET PO SCH ×2 (09:34→21:33)
[2022-08-23 17:27] VITALS: BP_SYST 155
[2022-08-23 20:00] VITALS: BP_SYST 145
[2022-08-23] MEDS: LORazepam 1 MG TABLET PO PRN (21:34)
[2022-08-23] MEDS: INSULIN GLARGINE 100 UNITS/ML, 10 ML VIAL SUBCUT SCH (23:21)
[2022-08-24] VITALS: BP_SYST 138
[2022-08-24 08:16] VITALS: BP_SYST 148
[2022-08-24] MEDS: LORazepam 1 MG TABLET PO PRN ×2 (09:53→21:30)
[2022-08-24] MEDS: QUEtiapine FUMARATE 25 MG TABLET PO SCH ×2 (09:59→21:30)
[2022-08-24] MEDS: INSULIN REGULAR, HUMAN 100 UNITS/ML, 3 ML VIAL (humuLIN R) SUBCUT PRN ×3 (12:12→23:21)
[2022-08-24] MEDS: NACL 0.9% 1,000 ML IV SCH ×2 (16:30→18:17)
[2022-08-24 20:00] VITALS: BP_SYST 144
[2022-08-24] MEDS: INSULIN GLARGINE 100 UNITS/ML, 10 ML VIAL SUBCUT SCH (23:19)
[2022-08-25] VITALS: BP_SYST 139
[2022-08-25] MEDS: NACL 0.9% 1,000 ML IV SCH ×2 (02:48→08:30)
[2022-08-25] MEDS: QUEtiapine FUMARATE 25 MG TABLET PO SCH (09:23)
[2022-08-25] MEDS: INSULIN REGULAR, HUMAN 100 UNITS/ML, 3 ML VIAL (humuLIN R) SUBCUT PRN (11:58)
[2022-08-25 12:27] VITALS: BP_SYST 142
[2022-08-25] MEDS ORDERED: ASPI-1155 PO (15:43)
[2022-08-25] MEDS ORDERED: SER25 PO ×2 (15:44→16:26)
[2022-08-25] MEDS ORDERED: METF-1069 PO (15:44)
[2022-08-25 15:51] VITALS: BP_SYST 154
[2022-08-25] MEDS ORDERED: METF-379 PO (16:27)
[2022-08-25] MEDS ORDERED: ASA81 PO (16:27)
[2022-08-25] MEDS ORDERED: LISI20TA30 PO (16:28)
[2022-08-25] MEDS ORDERED: INSU100V9 SQ (16:28)
== END 2022-08-25 16:49 | disposition home or self-care (01) | DRG 420 ==
LOC: SED 20:27 → STU 08-21 00:22 → SMU 08-22 22:18
PROVIDERS: ADMIT Internal Medicine; ATTEND Internal Medicine
DX: E10.65 Type 1 diabetes mellitus with hyperglycemia (principal); N17.0 Acute kidney failure with tubular necrosis; G93.41 Metabolic encephalopathy; F29 Unspecified psychosis not due to a substance or known physiological condition; R29.810 Facial weakness; I10 Essential (primary) hypertension; F15.20 Other stimulant dependence, uncomplicated; F14.90 Cocaine use, unspecified, uncomplicated; Z20.822 Contact with and (suspected) exposure to COVID-19; F32.A Depression, unspecified; Z79.899 Other long term (current) drug therapy; Z79.4 Long term (current) use of insulin; Z79.82 Long term (current) use of aspirin; Z86.73 Personal history of transient ischemic attack (TIA), and cerebral infarction without residual deficits; Z91.119 Patient's noncompliance with dietary regimen due to unspecified reason; Z91.199 Patient's noncompliance with other medical treatment and regimen due to unspecified reason
CPT/HCPCS: 36415; 36600; 70450-TC; 70551; 71045; 76376; 80053; 80061; 81000; 82803-TC; 82962; 83605; 84484; 85025; 87040; 87081; 93880; 96361; 96374; 96375; 99285; G0378; J1200; J1815; J1885